=== PATIENT | male | born 1960 | race Caucasian/White ===

== ENCOUNTER → 2016-08-21 | Outpatient (CLI) | payer BC ==
--- NOTE | 2016-08-21 15:43 | DIAGNOSTIC IMAGING REPORT ---
CHEST 2 VIEWS ROUTINE CLINICAL HISTORY: ATYPICAL CHEST PAIN, PT WENT TO LAB FIRST COMPARISON STUDY: No previous studies for comparison. FINDINGS: The bones soft tissues and hemidiaphragms are normal. The cardiomediastinal silhouette is normal. The lungs are clear. The pulmonary vasculature is normal. IMPRESSION: Negative chest. Electronically signed by: Khoa Dill M.D. 08/21/2016 3:41 PM Dictated Date/Time: 08/21/2016 3:41 PM
== END | disposition home or self-care (01) ==
LOC: C.RADBC 15:07
PROVIDERS: ATTEND Internal Medicine Geriatric Medicine
DX: R07.89 Other chest pain (principal)

== ENCOUNTER → 2017-02-11 | Outpatient (CLI) | payer BC ==
--- NOTE | 2017-02-11 13:54 | DIAGNOSTIC IMAGING REPORT ---
RIGHT LOWER EXT JOINT WITHOUT CLINICAL HISTORY: 56 years-old Male presenting with ANKLE PAIN, intermittent pain, injury 40 years ago. TECHNIQUE: Multisequence, multiplanar MR imaging of the right ankle was performed without the use of intravenous contrast. IV contrast: None. COMPARISON: None. FINDINGS: Localizer images: Unremarkable. Bony edema noted in the talus along the lateral aspect of the posterior subtalar joint. Less extensive associated bony edema in the lateral aspect of the opposing calcaneus. Minimal bony edema also noted more medially in the calcaneus in the posterior subtalar joint. Bony edema also noted in the lateral malleolus at the talofibular articulation. Increased signal intensity within the articular cartilage of the posterior subtalar joint anterolaterally. Osteophytosis along the lateral aspect of the talus. Type I accessory navicular bone noted. Peroneal brevis and longus tendons intact. Tibialis posterior, flexor digitorum longus, and flexor hallucis longus tendons intact. Tibialis anterior, extensor hallucis longus, and extensor digitorum longus tendons intact. Mild increased signal within the deltoid ligament, although it remains intact. Anterior and posterior tibiofibular ligaments intact. Increased signal intensity within the anterior and posterior talofibular ligaments. No significant ankle joint effusion. Mild infiltration of Kager fat pad. IMPRESSION: 1. 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 2. Osteophytosis of the lateral talus with extensive degenerative change at the opposing articulation with the lateral malleolus. 3. 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 4. No evidence of tendon tear. Electronically signed by: Eddie Redman M.D. 02/11/2017 1:53 PM Dictated Date/Time: 02/11/2017 1:30 PM
== END | disposition home or self-care (01) ==
LOC: C.MRI 12:16
PROVIDERS: ATTEND Podiatrist Foot & Ankle Surgery
DX: M79.672 Pain in left foot (principal); M79.671 Pain in right foot